=== PATIENT | male | born 1985 ===

== ENCOUNTER 2016-10-31 09:14 | Day surgery (SDC) | payer BC ==
[2016-10-31 09:59] VITALS: BMI 23.3
[2016-10-31 10:13] VITALS: O2SAT 100
[2016-10-31] MEDS ORDERED: Midazolam 2 MG/2 ML VIAL ONE (11:20)
[2016-10-31] MEDS ORDERED: Propofol 10 mg/ml Inj (20 ML) ONE ×2 (11:21→11:44)
[2016-10-31] MEDS ORDERED: Lactated Ringer's 1,000 ML IV SCH (12:00)
[2016-10-31 12:08] VITALS: TEMP 97.5
[2016-10-31 12:32] VITALS: PULSE 91
[2016-10-31 13:11] VITALS: BP 111/67; RESP 12
== END 2016-10-31 13:05 | disposition home or self-care (01) ==
LOC: C.ENDO 09:14
PROVIDERS: ATTEND Internal Medicine Gastroenterology
DX: K64.1 Second degree hemorrhoids (principal); K63.89 Other specified diseases of intestine; K62.5 Hemorrhage of anus and rectum
CPT/HCPCS: 45380; 88305; J2250; J2704; J7120